=== PATIENT | male | born 1985 | race Caucasian/White ===

== ENCOUNTER 2019-09-03 20:14 | Inpatient (IN) | payer SELFPAY ==
--- NOTE | ~2019-09-03 | XR_ITS ---
EXAMINATION: XR abdomen NG/feed tube rechec DATE: 09/04/2019 09:50 INDICATION: Nasogastric tube repositioning. TECHNIQUE: An upright view of the abdomen was obtained. COMPARISON: Abdomen radiographs at 5:29 AM FINDINGS: The lower abdomen is excluded. The nasogastric tube tip is in the stomach. IMPRESSION: 1. Nasogastric tube tip in the stomach. Reviewed, dictated and finalized at location A. PRODUCTION ARTIST
--- NOTE | ~2019-09-03 | XR_ITS ---
EXAMINATION: XR abdomen obstructive series DATE: 09/04/2019 05:40 INDICATION: Bowel obstruction. TECHNIQUE: Upright and supine views of the abdomen were obtained. COMPARISON: CT abdomen and pelvis 09/03/2019 FINDINGS: There is oral contrast in mildly dilated loops of small bowel. The colon is decompressed. T he nasogastric tube tip is in the stomach. There is contrast in the bladder. No free intraperitoneal gas. IMPRESSION: 1. Contrast retained in mildly dilated loops of small bowel, consistent with small bowel obstruction. Reviewed, dictated and finalized at location A. OL SUPERINTENDENT IMPRESSION: 1. Contrast retained in mildly dilated loops of small bowel, consistent with sm all bowel obstruction.
--- NOTE | ~2019-09-03 | CT_ITS ---
EXAMINATION: CT abdomen pelvis w con DATE: 09/03/2019 22:07 INDICATION: Right-sided abdominal pain TECHNIQUE: Computed tomography (CT) of the abdomen and pelvis was performed with 100 mL Omnipaque-350 intravenous contrast. Automated exposure control and iterative reconstruction technique were employe d. The dose-length product was 444.82 mGy-cm. COMPARISON: None FINDINGS: Lung bases are clear. Heart size is normal. No pericardial or pleural effusion. Small sliding-type hi atal hernia. Liver, gallbladder, spleen, pancreas, bilateral adrenal glands and kidneys are normal. T iny calcified appendicolith within the normal appendix. There is small bowel pseudofeces within an ap proximately 20 cm length of mildly dilated terminal ileum which measures up to 4.0 cm in maximal diam eter. This extends to the ileocecal valve where a small amount of feculent material can be seen exten ding through the valve. There is mild cecal wall thickening. There is some mucosal hyperemia extendin g for an additional 15-20 cm proximally. There is a targetoid appearance to a likely small bowel intu ssusception at the site of an anastomotic suture line in the left lower quadrant of the abdomen. Ther e is no more proximal bowel dilation to suggest obstruction at the site of the intussusception was ma y be transient. Bladder is normal. Small amount of ascites in the deep pelvis. No abscess or free int raperineal gas. No pathologically enlarged abdominal or pelvic lymphadenopathy. Bones are unremarkabl e. IMPRESSION: 1. Pseudofeces suggesting delayed transit at the mildly dilated terminal ileum which extends to the i leocecal valve. Note definitive obstructing lesion identified however there is hyperemia along the di stal ileum and mild wall thickening at the tip of the cecum suggesting possibility of terminal ileiti s which could be inflammatory or infectious in etiology. 2. Likely small bowel intussusception at the site of a small bowel anastomosis however this may be tr ansient as the bowel on either side of the intussusception is decompressed. Reviewed, dictated and finalized at location A. MAKER IMPRESSION: 1. Pseudofeces suggesting delayed transit at the mildly dilated terminal ileum which extends to the ileocecal valve. Note definitive obstructing lesion identi fied however there is hyperemia along the distal ileum and mild wall thickening at the tip of the cecum suggesting possibility of terminal ileitis which could be inflammatory or infectious in etiology. 2. Likely small bowel intussusception at the site of a small bowel anastomosis however this may be transient as the bowel on either side of the intussusceptio n is decompressed.
--- NOTE | ~2019-09-03 | XR_ITS ---
XR sm bowel follow through WS DATE: 09/05/2019 12:20 INDICATION: Small bowel obstruction TECHNIQUE: Serial images of the abdomen after placement of water soluble contrast material through ex isting NG tube COMPARISON: 09/13/2019 CT abdomen pelvis 09/04/2019 obstructive series FINDINGS: There is normal transit of contrast material through the small bowel without evidence of st ricture, obstruction or mucosal fold thickening. IMPRESSION: No evidence of small bowel obstruction Reviewed, dictated and finalized at Location A. Reviewed, dictated and finalized at location A. ICAL REHABILITATION AIDE
--- NOTE | ~2019-09-03 | XR_ITS ---
XR abdomen/kub 1V DATE: 09/06/2019 06:04 INDICATION: Small bowel obstruction TECHNIQUE: Portable supine AP views on 09/06/2019 at 0602 hours COMPARISON: 09/05/2019 small bowel series FINDINGS: Radiopaque contrast material is noted within the colon and rectum. There are gas containing nondilated small bowel segments overlying the mid abdomen. The psoas shadows are intact. No visceromegaly is noted. IMPRESSION: Nonspecific abdomen Reviewed, dictated and finalized at Location A. Reviewed, dictated and finalized at location A. E SYSTEMS OPERATIONS CRAFTSMAN IMPRESSION: Nonspecific abdomen
--- NOTE | ~2019-09-03 | XR_ITS ---
XR abdomen/kub 1V DATE: 09/05/2019 08:55 INDICATION: Small bowel obstruction TECHNIQUE: Supine AP view COMPARISON: 09/04/2019 portable upright AP abdomen obstructive series FINDINGS: NG tube is noted in distal stomach. Radiopaque bowel sutures overlie the left mid to upper abdomen. There is radiopaque contrast material in the colon. IMPRESSION: NG tube in distal stomach Postoperative change of the stomach Contrast material in the colon Reviewed, dictated and finalized at Location A. Reviewed, dictated and finalized at location A. CHDOWN [employer]E FORMER
--- NOTE | ~2019-09-03 | XR_ITS ---
EXAMINATION: XR abdomen NG/feed tube insert DATE: 09/04/2019 00:05 INDICATION: Nasogastric tube placement TECHNIQUE: A supine view of the abdomen and lower chest was obtained for evaluation of feeding tube placement. COMPARISON: None. FINDINGS: Is a gastric tube tip in the body of the stomach. Injected oral contrast material seen in the stomach and extending into the proximal small bowel which demonstrates a normal caliber and mucosal fold pat tern. No dilated gas-filled loops of bowel. IMPRESSION: 1. Nasogastric tube in the stomach. Reviewed, dictated and finalized at location A. M FINISHER
[2019-09-03 20:25] VITALS: BP 137/78; PULSE 89; RESP 18; TEMP 36.4; O2SAT 97
[2019-09-03 20:29] LABS: Basophils Absolute Auto 0.1 K/mm3 (0.0-0.1); Basophils Percent Auto 0.3 % (0.2-1.2); Eosinophils Percent Auto 0.1 % (0-4.4); Hematocrit 48.2 % (42.0-52.0); Hemoglobin 16.1 g/dL (14.0-18.0); Immature Granulocyte Absolute 0.07 K/mm3 (0.00-0.031); Immature Granulocyte Percent A 0.4 % (0-0.5); Lymphocytes Absolute Auto 1.25 K/mm3 (0.9-3.2); Lymphocytes Percent Auto 7.2 % (18.3-44.2); Mean Corpuscular HGB Conc 33.4 g/dl (32-36); Mean Corpuscular Hemoglobin 31.3 pg (26-34); Mean Corpuscular Volume 93.8 fl (80-100); Mean Platelet Volume 10.8 fl (7.4-10.4); Monocytes Absolute Auto 0.8 K/mm3 (0.1-0.6); Monocytes Percent Auto 4.7 % (2.6-8.5); Neutrophils Absolute Auto 15.1 K/mm3 (1.3-6.7); Neutrophils Percent Auto 87.3 % (45.5-73.1); Platelet Count Result 298 k/mm3 (150-375); Red Blood Count 5.14 M/mm3 (4.6-6.20); White Blood Count 17.4 K/mm3 (4.5-10.0)
[2019-09-03 20:41] LABS: Alanine Aminotransferase 21 U/L (4-50); Albumin Level 4.7 g/dL (3.5-5.1); Alkaline Phosphatase 72 U/L (38-126); Aspartate Amino Transferase 23 U/L (17-59); Bilirubin,Total 0.9 mg/dL (0.2-1.3); Blood Urea Nitrogen 10 mg/dL (9-20); Calcium 9.6 mg/dL (8.4-10.2); Carbon Dioxide 23 mmol/L (22-30); Chloride 102 mmol/L (98-107); Estimated CRCL calculation 102 ml/min; Estimated Glomerular Filt Rate > 60; Glucose 117 mg/dL (75-110); Lipase 38 U/L (23-300); Potassium 4.2 mmol/L (3.4-5.0); Sodium 137 mmol/L (137-145)
[2019-09-03 20:46] LABS: Add Urine Microscopic? YES; Appearance Urine Cloudy (Clear); Bacteria Urine 4+ /hpf; Bilirubin Urine Negative (Negative); Blood Urine Negative (Negative); Color Urine Yellow (Yellow); Glucose Urine UA Negative (Negative); Ketones Urine Trace mg/dL (Negative); Leukocyte Esterase Ur 1+ LEU/UL (Negative); Mucus Urine Heavy /lpf; Nitrate Urine Positive (Negative); Protein Urine Negative (Negative); Specific Grav Ur 1.027 (1.001-1.035); Urobilinogen Urine Negative mg/dL (<2.0); WBC Urine 51-75 /hpf
--- NOTE | 2019-09-03 21:31 | ED.ABDPAIN ---
HPI - Abdominal Pain General Chief Complaint: Abdominal Pain Stated Complaint: ABD PAIN Time Seen by Provider: 09/03/19 21:14 Source: patient and RN notes reviewed Mode of arrival: ambulatory Limitations: no limitations History of Present Illness HPI narrative: Pt is a 33 y/o male with a Hx of partial colectomy, who presents to the ED with c/o epigastric pain starting around 4 AM this morning. He notes that his pain has been intermittent throughout the day today, stating that his pain comes roughly every 5-10 minutes and lasts for 1-2 minutes at a time. Pt describes his pain as cramping, and notes that his pain radiates into his RUQ. He states that he has been nauseas throughout the day, noting that he hasn't eaten much due to his symptoms. He also reports 1 episode of vomiting and low back pain, but denies any dysuria, urinary frequency, or dark colored urine. MD elicited complaint: abdominal pain Onset (ago): hour(s) (17) Pain Consistency: intermittent Location: epigastric Quality: cramping Radiation: RUQ Associated symptoms: nausea, vomiting and other (decreased intake; low back pain) Related Data Home Medications Medication Instructions Recorded Confirmed No Home Medications 09/03/19 09/03/19 Allergies Allergy/AdvReac Type Severity Reaction Status Date / Time No Known Allergies Allergy Verified 09/03/19 20:30 Review of Systems Review of Systems: All systems reviewed & are unremarkable except as noted in HPI and below Constitutional: Constitutional: Reports other (decreased intake) Gastrointestinal: Gastrointestinal: Reports abdominal pain (epigastric pain radiating into RUQ), Reports nausea and Reports vomiting Genitourinary: Genitourinary: Denies dysuria, Denies urinary frequency and Denies other (dark colored urine) Musculoskeletal: Musculoskeletal: Reports back pain (low back pain) [facility] Past Medical History Medical History Finger fracture Jaw fracture Knee fracture, right Rib fractures Skull fracture Toe fracture Surgical History Surgical History History of partial colectomy Social History Social History Smoking packs per day: 1 Smoking cigarettes per day: 20.0 Smoking status: Current every day smoker Tobacco type: cigarettes Alcohol intake: never Substance use: never Gender identity (if verbalized by the patient): Male Spiritual care concerns: No Agree to blood products: Yes Exam Narrative: Exam Narrative: GENERAL: Uncomfortable-appearing, well-nourished, and in no acute distress. HEAD: Normocephalic, atraumatic. ENT: Mucous membranes moist. CHEST: Clear to auscultation. No respiratory distress. HEART: Regular rate and rhythm. Normal peripheral pulses. ABDOMEN: Soft, mild epigastric and right upper quadrant tenderness without guarding, nondistended. EXTREMITIES: Normal range of motion. No edema. SKIN: Warm, dry, no rash. NEURO: Alert and oriented x3. Course Consultations Consultation #1: Discussed case with general surgeon, Dr. Guerrero. Accepted for observation. Advised to give oral Gastrografin and place NG. Date: 09/03/19 Time: 23:01 Vital Signs Vital signs: Vital Signs Temperature 97.5 F L 09/03/19 20:25 Pulse Rate 89 09/03/19 20:25 Respiratory Rate 18 09/03/19 20:25 Blood Pressure 137/78 09/03/19 20:25 Pulse Oximetry 97 09/03/19 20:25 Temperature 98.4 F 09/04/19 00:41 Pulse Rate 77 09/04/19 00:41 Respiratory Rate 18 09/04/19 00:41 Blood Pressure 138/77 09/04/19 00:41 Pulse Oximetry 99 09/04/19 00:41 MDM - Abdominal Pain Lab Data Result diagrams: 09/03/19 20:22 09/03/19 20:22 Labs: Lab Results 09/03/19 09/03/19 09/03/19 Range/Units 20:22 20:22 20:32 WBC 17.4 H (4.5-10.0) K/mm3 RBC 5.14 (4.6-6.20) M/mm3 Hgb 16.1 (14.0-18.0)
[2019-09-03] MEDS: SODIUM CHLORIDE 0.9% IV 1,000 ML 999 ML IV CONT (21:45)
[2019-09-03] MEDS: MORPHINE SULFATE 4 MG/ML INJ IV PUSH (23:27)
[2019-09-03] MEDS: ONDANSETRON INJ 4 MG/2 ML VIAL IV PUSH (23:28)
[2019-09-04 00:40] VITALS: BP 141/90; PULSE 97; RESP 14; O2SAT 99
[2019-09-04 00:41] VITALS: BP 138/77; PULSE 77; RESP 18; TEMP 36.9; O2SAT 99; BMI 28.1
--- NOTE | 2019-09-04 00:46 | ADMGEN ---
This patient, Linden Caballero, was admitted to 3 Med Surg Room 321-01. Patient/family oriented to hospital policies and general routines including ID bracelet, bed and alarms, visiting hours, pain management, procedures, bathroom and other care routines, personal items, smoking policy, room service/diet, and visiting hours. Valuables list has been completed. Information on how to activate the Rapid Response Team has been discussed. Patient/Family are encouraged to report perceived risks to care and to ask questions if they do not understand what they are told or what they should do.
[2019-09-04] MEDS: SODIUM CHLORIDE 0.9% IV 1,000 ML 125 ML IV CONT (01:04)
[2019-09-04] MEDS: MORPHINE SULFATE 4 MG/ML INJ IV PUSH ×5 (01:37→16:54)
[2019-09-04] MEDS: PHENOL/SOD PHENO SPRAY CHERRY (*BKC) 1 SPRAY MUCOUS MEM (01:49)
[2019-09-04 05:48] VITALS: BP 142/75; PULSE 69; RESP 18; TEMP 37.3; O2SAT 90
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
[2019-09-04 11:55] LABS: Hematocrit 43.6 % (42.0-52.0); Hemoglobin 14.7 g/dL (14.0-18.0); Mean Corpuscular HGB Conc 33.7 g/dl (32-36); Mean Corpuscular Hemoglobin 32.1 pg (26-34); Mean Corpuscular Volume 95.2 fl (80-100); Mean Platelet Volume 10.8 fl (7.4-10.4); Platelet Count Result 250 k/mm3 (150-375); Red Blood Count 4.58 M/mm3 (4.6-6.20); Red Cell Distribution Width 12.4 % (11.5-14.5); White Blood Count 15.6 K/mm3 (4.5-10.0)
[2019-09-04] MEDS: IBUPROFEN IV 800 MG/200 ML 800 MG/200 ML BAG 400 MG IVPB ×3 (12:17→23:34)
[2019-09-04 15:08] VITALS: BP 104/50; PULSE 71; RESP 16; TEMP 37.4; O2SAT 98
[2019-09-04] MEDS: FAMOTIDINE 20 MG/2 ML VIAL IV PUSH (20:13)
[2019-09-04 22:00] VITALS: BP 109/53; PULSE 65; RESP 20; TEMP 36.9; O2SAT 96
[2019-09-05] MEDS: IBUPROFEN IV 800 MG/200 ML 800 MG/200 ML BAG 400 MG IVPB ×4 (05:33→23:54)
[2019-09-05] MEDS: BENZOCAINE/MENTHOL (*BKC) 18 EA LOZENGE 1 LOZENGE PO (05:34)
[2019-09-05 06:28] VITALS: BP 103/57; PULSE 63; RESP 20; TEMP 36.6; O2SAT 96
[2019-09-05 06:44] LABS: Hematocrit 43.7 % (42.0-52.0); Hemoglobin 14.2 g/dL (14.0-18.0); Mean Corpuscular HGB Conc 32.5 g/dl (32-36); Mean Corpuscular Hemoglobin 31.4 pg (26-34); Mean Corpuscular Volume 96.7 fl (80-100); Mean Platelet Volume 11.2 fl (7.4-10.4); Platelet Count Result 214 k/mm3 (150-375); Red Blood Count 4.52 M/mm3 (4.6-6.20); Red Cell Distribution Width 12.3 % (11.5-14.5); White Blood Count 9.9 K/mm3 (4.5-10.0)
[2019-09-05 06:50] LABS: Blood Urea Nitrogen 17 mg/dL (9-20); Calcium 8.8 mg/dL (8.4-10.2); Carbon Dioxide 28 mmol/L (22-30); Chloride 101 mmol/L (98-107); Estimated CRCL calculation 82 ml/min; Estimated Glomerular Filt Rate > 60; Glucose 75 mg/dL (75-110); Potassium 3.5 mmol/L (3.4-5.0); Sodium 141 mmol/L (137-145)
[2019-09-05 08:00] VITALS: PULSE 63; RESP 20; O2SAT 96
[2019-09-05] MEDS: ENOXAPARIN 40 MG/0.4 ML SYRINGE SUB-Q (09:36)
[2019-09-05] MEDS: FAMOTIDINE 20 MG/2 ML VIAL IV PUSH ×2 (09:36→20:56)
[2019-09-05] MEDS: MORPHINE SULFATE 4 MG/ML INJ IV PUSH (09:39)
--- NOTE | 2019-09-05 10:15 | PM.PNGS ---
Progress Note: A&P Assessment and Plan (1) Partial small bowel obstruction: Code(s): K56.600 - Partial intestinal obstruction, unspecified as to cause Status: Acute Assessment and Plan: Patient showing gradual signs of improvement. Will get a Gastrografin small-bowel follow-through today. Could possibly remove NG if obstruction is resolved on imaging. Starting IV fluids this morning, unsure why patient has not been on any yet. (2) Acute UTI: Code(s): N39.0 - Urinary tract infection, site not specified Status: Acute Assessment and Plan: Currently on Rocephin Subjective Subjective Date/Time Seen: 09/05/19 10:15 Passing some flatus but no bowel movement. Pain is less. Patient is concerned about becoming dehydrated because he is not on any IV fluids and is currently NPO. Exam GI: Inspection: non-distended and scar (Midline vertical) GI Palp: No abdominal tenderness, Yes Soft to palpation, No Guarding due to palpation present (GI) and No Rebound tenderness present Percussion: Yes normal to percussion Auscultation: normal bowel sounds Objective Data Vital Signs Vital Signs: Vital Signs - 24 hr 09/04/19 15:08 09/04/19 22:00 09/05/19 06:28 Temperature 37.4 C 36.9 C 36.6 C Pulse Rate 71 65 63 Respiratory Rate 16 20 20 Blood Pressure 104/50 L 109/53 L 103/57 L Pulse Oximetry 98 96 96 Intake/Output Intake/Output: Intake & Output 09/02/19 09/03/19 09/04/19 09/05/19 23:59 23:59 23:59 23:59 Intake Total 1000 1581 500 Output Total 2225 400 Balance 1000 -644 100 Meds/Results Medications: Active Medications Generic Name Dose Route Start Last Admin Trade Name Freq PRN Reason Stop Dose Admin Benzocaine 1 lozenge 09/04/19 11:19 09/05/19 05:34 Chloraseptic Lozenge PO 1 lozenge PRN PRN Administration Sore Throat Enoxaparin Sodium 40 mg 09/05/19 09:00 09/05/19 09:36 Lovenox SUB-Q 40 mg DAILY MATT Administration Famotidine 20 mg 09/04/19 21:00 09/05/19 09:36 Pepcid Iv IV PUSH 20 mg Q12HR MATT Administration Ceftriaxone Sodium/Dextrose 1 gm in 50 mls @ 100 mls/hr 09/04/19 21:00 09/04/19 20:42 Rocephin 1 Gm/D5w 50 Ml IVPB Infused DAILY@2100 MATT Infusion Ibuprofen 800 mg in 200 mls @ 400 mls/hr 09/04/19 12:00 09/05/19 06:03 Caldolor 800 Mg/200 Ml IVPB Infused Q6H MATT Infusion Acetaminophen 1,000 mg in 100 mls @ 400 mls/hr 09/04/19 11:29 Ofirmev 1,000 Mg Ivpb IVPB 09/05/19 11:30 Q6H PRN Pain Rated 1-3 or fever Lactated Ringer's 1,000 mls @ 150 mls/hr 09/05/19 10:00 Lr - Lactated Ringers Iv IV CONT .Q6H40M MATT Morphine Sulfate 4 mg 09/03/19 23:16 09/05/19 09:39 Morphine Sulfate Inj IV PUSH 4 mg Q2H PRN Administration Pain Rated 7-10 Morphine Sulfate 1 mg 09/04/19 11:29 Morphine Sulfate Inj IV PUSH Q2H PRN Pain Rated 1 TO 3 Morphine Sulfate 2 mg 09/04/19 11:45 Morphine Sulfate Inj IV PUSH Q2H PRN Pain Rated 4 TO 6 Naloxone HCl 0.1 mg 09/04/19 11:29 Narcan IV PUSH Q2M PRN Opiate Reversal Ondansetron HCl 4 mg 09/04/19 11:29 Zofran Inj IV PUSH Q4H PRN Nausea And Vomiting Phenol 1 spray 09/04/19 01:23 09/04/19 01:49 Chloraseptic [place] MUCOUS MEM 1 spray PRN PRN Administration Sore Throat Radiology Results: ITS Impressions Abdomen/Pelvis CT 09/03/19 22:14 IMPRESSION: 1. Pseudofeces suggesting delayed transit at the mildly dilated terminal ileum which extends to the ileocecal valve. Note definitive obstructing lesion identified however there is hyperemia along the distal ileum and mild wall thickening at the tip of the cecum suggesting possibility of terminal ileitis which could be inflammatory or infectious in etiology. 2. Likely small bowel intussusception at the site of a small bowel anastomosis however this may be transient as the bowel on either side of the intussusception is decompres
[2019-09-05] MEDS: LACTATED RINGERS 1,000 ML 150 ML IV CONT (12:47)
[2019-09-05 13:27] VITALS: BP 118/57; PULSE 72; RESP 20; TEMP 37.4; O2SAT 98
[2019-09-05 21:48] VITALS: BP 109/50; PULSE 77; RESP 16; TEMP 37.6; O2SAT 95
[2019-09-06] MEDS: IBUPROFEN IV 800 MG/200 ML 800 MG/200 ML BAG 400 MG IVPB (05:27)
[2019-09-06 06:00] VITALS: BP 103/47; PULSE 68; RESP 16; TEMP 36.8; O2SAT 96
[2019-09-06 06:33] LABS: Hematocrit 41.1 % (42.0-52.0); Hemoglobin 13.7 g/dL (14.0-18.0); Mean Corpuscular HGB Conc 33.3 g/dl (32-36); Mean Corpuscular Hemoglobin 31.3 pg (26-34); Mean Corpuscular Volume 93.8 fl (80-100); Platelet Count Result 227 k/mm3 (150-375); Red Blood Count 4.38 M/mm3 (4.6-6.20); White Blood Count 7.8 K/mm3 (4.5-10.0)
[2019-09-06 06:45] LABS: Blood Urea Nitrogen 14 mg/dL (9-20); Calcium 8.3 mg/dL (8.4-10.2); Carbon Dioxide 29 mmol/L (22-30); Chloride 103 mmol/L (98-107); Estimated CRCL calculation 76 ml/min; Estimated Glomerular Filt Rate > 60; Glucose 91 mg/dL (75-110); Potassium 3.5 mmol/L (3.4-5.0); Sodium 141 mmol/L (137-145)
[2019-09-06] MEDS: ENOXAPARIN 40 MG/0.4 ML SYRINGE SUB-Q (09:20)
[2019-09-06] MEDS: FAMOTIDINE 20 MG/2 ML VIAL IV PUSH (09:21)
--- NOTE | 2019-09-06 10:55 | PM.DS ---
DS: Diagnosis Admitting Diagnosis Admitting Diagnosis: Partial intestinal obstruction, unspecified as to cause Discharge Diagnosis (1) Partial small bowel obstruction: Code(s): K56.600 - Partial intestinal obstruction, unspecified as to cause Status: Acute (2) Acute UTI: Code(s): N39.0 - Urinary tract infection, site not specified Status: Acute DS: Summary Hospital Course Reason for hospitalization: Small-bowel obstruction Hospital Course: Patient presented to the emergency department with abdominal pain with nausea and vomiting. He was found to have a small-bowel obstruction on CT. NG tube was placed and he was admitted to the hospital. Bowel rest with NG decompression was continued for the next couple days. He was also found to have a urinary tract infection on his ER workup. Culture showed evidence of E coli that was pansensitive. He has completed 4 days of IV antibiotics. No outpatient antibiotics needed. On 09/05/2019 a Gastrografin small bowel follow-through was obtained, and this showed resolution of small-bowel obstruction with normal transit time to the colon. NG tube was removed and he was started on clear liquids. On 09/06/2019 his diet was advanced as tolerated. After tolerating a regular diet without any recurrence of symptoms, he was then discharged home. Status at Discharge Functional status at discharge: independent ambulation Overall status at discharge: patient is back to baseline Time Spent with Patient Time attestation: Total time spent providing and/or coordinating discharge services: Time spent: Less than 30 minutes Exam Const: General: no acute distress Neck: Neck: supple and no JVD Resp: Effort & Inspection: normal respiratory effort Auscultation: clear to auscultation bilaterally Cardio: Rate: regular rate Rhythm: regular rhythm GI: Inspection: non-distended GI Palp: Yes Soft to palpation, No Tenderness to palpation present (GI) and No Guarding due to palpation present (GI) Percussion: Yes normal to percussion Auscultation: normal bowel sounds Psych: Mental Status: mental status grossly normal DS: Data Data Completed and Pending Labs on day of discharge: Labs from last 24 hours 09/06/19 09/06/19 06:05 06:05 WBC 7.8 RBC 4.38 L Hgb 13.7 L Hct 41.1 L MCV 93.8 MCH 31.3 MCHC 33.3 RDW 12.0 Plt Count 227 MPV 11.0 H Sodium 141 Potassium 3.5 Chloride 103 Carbon Dioxide 29 BUN 14 Creatinine 1.20 Estim Creat Clear Calc 76 Estimated GFR > 60 Glucose 91 Calcium 8.3 L Discharge Plan Discharge Attending physician on discharge: Joe Guerrero Consulting providers: Payam Charles Discharging Clinician: Abhishek Horner Patient Disposition: Home, Self-Care Activity: unlimited Diet: as tolerated and regular Discharge Instructions: Return to the emergency department for any recurrent symptoms Follow-up with PCP if having any difficulty urinating or burning with urination Patient Instructions: Antibiotic Form, How to Stop Smoking (DC), Urinary Tract Infection in Men (DC), Pain Management (DC), Bowel Obstruction (DC) Stand Alone Forms: General Discharge Information Follow-up/Referrals: Payam Charles MD [Physician] - Call for Appointment Discharge Medications: Continued No Home Medications RF: 0 Date of admission: 09/04/19 10:38 Primary Care Provider: PHYSICIAN,LION TAMER Admitting Provider: Joe Guerrero Attending physician on admission: Joe Guerrero Condition: Stable
== END 2019-09-06 13:20 | disposition home or self-care (01) | DRG 247 ==
LOC: ANHED 21:51 → ANH3MEDSUR 23:34
PROVIDERS: Admitting Provider Surgery; Emergency Provider Emergency Medicine; Visit Provider Surgery
DX: K56.600 Partial intestinal obstruction, unspecified as to cause (principal); N39.0 Urinary tract infection, site not specified; B96.20 Unspecified Escherichia coli [E. coli] as the cause of diseases classified elsewhere; F17.210 Nicotine dependence, cigarettes, uncomplicated; Z28.21 Immunization not carried out because of patient refusal
CPT/HCPCS: 36415; 74018; 74019; 74177; 74250; 80048; 80053; 81001; 83690; 85025; 85027; 87077; 87086; 87088; 87186; 96361; 96365; 96375; 99285; A9270; J0696; J1650; J1741; J2270; J2405; J7030; J7120; Q9967